=== PATIENT | male | born 2000 | race Hispanic/Latino ===

== ENCOUNTER 2025-02-11 17:33 | Emergency (ER) | payer OTHER ==
[~2025-02-11] VITALS: Ht 172.7 cm; Wt 93.5 kg
[2025-02-11 17:40] VITALS: TEMP 98.2
[2025-02-11 20:58] VITALS: BP 142/83; O2SAT 99
== END 2025-02-11 21:02 | disposition home or self-care (01) ==
LOC: M ED 17:33
DX: S80.911A Unspecified superficial injury of right knee, initial encounter (principal); S93.401A Sprain of unspecified ligament of right ankle, initial encounter; X50.0XXA Overexertion from strenuous movement or load, initial encounter; Z91.013 Allergy to seafood; Z91.048 Other nonmedicinal substance allergy status; Y92.89 Other specified places as the place of occurrence of the external cause; Y93.89 Activity, other specified; Y99.1 Military activity

== ENCOUNTER 2025-06-07 21:10 | Emergency (ER) | payer OTHER ==
[~2025-06-07] VITALS: Ht 172.7 cm; Wt 99.6 kg
[2025-06-07] MEDS: ACETAMINOPHEN 500 MG TAB PO ONE (22:15)
[2025-06-07] MEDS: IBUPROFEN 600 MG TAB PO ONE (22:15)
[2025-06-08 01:07] LABS: BASO # 0.0 10^3/uL (0.0-0.2); BASO % 0.2 % (0.0-1.0); EOS # 0.0 10^3/uL (0.0-0.5); EOS % 0.2 % (0.0-3.0); LYMPH # 1.2 10^3/uL (1.5-5.0); LYMPH % 9.8 % (24.0-44.0); MONO # 1.0 10^3/uL (0.0-0.8); MONO % 8.2 % (2.0-8.0); NEUTROPHILS # 10.2 10^3/uL (1.5-8.5); NEUTROPHILS % 81.3 % (36.0-66.0); PLATELET COUNT, AUTOMATED 231 10^3/uL (150-450)
[2025-06-08] MEDS ORDERED: AZIT-12 PO (01:52)
[2025-06-08 02:20] VITALS: BP 121/61; TEMP 98.7; O2SAT 97
== END 2025-06-08 02:20 | disposition home or self-care (01) ==
LOC: M ED 21:10
DX: R50.9 Fever, unspecified (principal); R07.0 Pain in throat; F17.200 Nicotine dependence, unspecified, uncomplicated; F10.10 Alcohol abuse, uncomplicated; Z91.013 Allergy to seafood; Z91.041 Radiographic dye allergy status; Z79.2 Long term (current) use of antibiotics

== ENCOUNTER 2025-07-11 10:48 | Day surgery (SDC) | payer OTHER ==
[~2025-07-11] VITALS: Ht 172.7 cm; Wt 100.1 kg
[~2025-07-11 10:48] MED LIST: AZIT-12 PO
[2025-07-11] MEDS ORDERED: FAMOTIDINE 20 MG/2 ML VIAL IVP ONE (11:15)
[2025-07-11] MEDS ORDERED: dexmedeTOMIDine (4 MCG/ML) 200 MCG/50 ML BTL As Ordered ONE (12:49)
[2025-07-11] MEDS ORDERED: LIDOCAINE 2% 100 MG/5 ML SDV (FOR ANES.) As Ordered ONE (12:50)
[2025-07-11] MEDS ORDERED: dexAMETHasone 4 MG/ML 1 ML VIAL As Ordered ONE (12:50)
[2025-07-11] MEDS: LR 1,000 ML IV SCH (13:25)
[2025-07-11] MEDS: MIDAZOLAM INJ 2 MG/2 ML VIAL IV PRN (13:35)
[2025-07-11] MEDS: ROPIvacaine 0.5% 30ML VIAL PN ONE (13:38)
[2025-07-11] MEDS: dexAMETHasone 10 MG/1 ML VIAL PRES.FREE PN ONE (13:38)
[2025-07-11] MEDS: LIDOCAINE 1% SDV 5 ML VIAL PN ONE (13:38)
[2025-07-11] MEDS: ceFAZolin SOD 2 GM IV ONCE IV ONE (13:55)
[2025-07-11] MEDS: TRANEXAMIC ACID 100 MG/ML 10ML VIAL IV ONE (14:06)
[2025-07-11] MEDS ORDERED: ACETAMINOPHEN 1000MG/100ML IV BAG As Ordered ONE (14:14)
[2025-07-11] MEDS ORDERED: ONDANSETRON 4MG 2ML VIAL As Ordered ONE (14:20)
[2025-07-11] MEDS ORDERED: KETOROLAC 30 MG/ML 1 ML VIAL As Ordered ONE (14:20)
[2025-07-11] MEDS: VANCOMYCIN 1000MG/20ML VIAL As Ordered ONE (14:35)
[2025-07-11] MEDS: EPINEPHrine 1 MG/ML INJ 30 ML MD-VIAL As Ordered ONE (16:07)
[2025-07-11] MEDS: TRANEXAMIC ACID 100 MG/ML 10ML VIAL As Ordered ONE (16:07)
[2025-07-11] MEDS ORDERED: MORPHINE 4 MG/ML 1 ML VIAL IV PRN (16:25)
[2025-07-11] MEDS: HYDROMORPHONE HCL 0.5 MG/0.5 ML SYRINGE IV PRN (16:50)
[2025-07-11] MEDS ORDERED: ONDANSETRON 4MG 2ML VIAL IV PRN (16:55)
[2025-07-11 17:45] VITALS: BP 129/79; TEMP 97.9; O2SAT 99
== END 2025-07-11 18:15 | disposition home or self-care (01) ==
LOC: M SDC 10:48
PROVIDERS: ATTEND Student in an Organized Health Care Education/Training Program
DX: S83.511A Sprain of anterior cruciate ligament of right knee, initial encounter (principal); S83.211A Bucket-handle tear of medial meniscus, current injury, right knee, initial encounter; S83.251A Bucket-handle tear of lateral meniscus, current injury, right knee, initial encounter; X50.1XXA Overexertion from prolonged static or awkward postures, initial encounter; Y93.89 Activity, other specified; Y92.9 Unspecified place or not applicable; Z91.013 Allergy to seafood; Z91.041 Radiographic dye allergy status; F17.200 Nicotine dependence, unspecified, uncomplicated
CPT/HCPCS: 29883; 29888; 76000; C1713; J0131; J0165; J0666; J0688; J1100; J1171; J1885; J2250; J2405; J2795; J3010; J3373